=== PATIENT | female | born 1980 | race Caucasian/White ===

== ENCOUNTER 2021-05-17 11:33 | Emergency (ER) | payer OTHER | END 2021-05-17 19:16 | disposition home or self-care (01) | LOC: CSHERS 11:33 | DX: S09.90XA Unspecified injury of head, initial encounter (principal); W01.198A Fall on same level from slipping, tripping and stumbling with subsequent striking against other object, initial encounter | CPT/HCPCS: 70450 ==

== ENCOUNTER 2021-06-27 20:21 | Emergency (ER) | payer BC ==
[2021-06-27] MEDS ORDERED: HYDROcodone/Acetaminophen 5/325 mg Tablet ONE (20:46)
== END 2021-06-27 22:14 | disposition home or self-care (01) ==
LOC: CSHERS 20:21
DX: S80.212A Abrasion, left knee, initial encounter (principal); M25.521 Pain in right elbow; W19.XXXA Unspecified fall, initial encounter
CPT/HCPCS: 99283